=== PATIENT | male | born 1995 | race Hispanic/Latino ===

== ENCOUNTER → 2025-01-07 16:41 | Outpatient (REF) | payer OTHER, SELFPAY ==
[2025-01-08 08:54] LABS: Glycohemoglobin (HgbA1c) 4.9 % (4.0-5.6)
== END ==
LOC: CLINIC 16:41
PROVIDERS: ATTENDING PHYSICIAN Internal Medicine
DX: R73.03 Prediabetes (principal)
CPT/HCPCS: 36415; 83036